=== PATIENT | male | born 1940 | race Two or more races ===

== ENCOUNTER 2021-02-19 07:45 | Inpatient (IN) | payer OTHER ==
[~2021-02-19] VITALS: Ht 172.7 cm; Wt 89.8 kg
[2021-02-19] MEDS ORDERED: LOSARTAN PO (10:39)
[2021-02-19] MEDS ORDERED: CRESTOR PO (10:39)
[2021-02-19] MEDS ORDERED: NEURIN PO (10:40)
[2021-02-19] MEDS ORDERED: PLAVIX75 MG PO (10:40)
[2021-02-19] MEDS ORDERED: ASPIRIN PO (10:40)
[2021-02-19] MEDS ORDERED: GABAPENT PO (10:41)
[2021-02-26] MEDS ORDERED: PREGABALIN75 MG (08:42)
[2021-02-26] MEDS ORDERED: PROAIR RESPICL90 MCG (08:42)
[2021-02-26] MEDS ORDERED: METOPROLOL SUCC50 MG (08:42)
[2021-02-26] MEDS ORDERED: LOSARTAN POTAS100 MG (08:42)
[2021-02-26] MEDS ORDERED: ABANEU-SL TABL1 EACH (08:42)
[2021-02-26] MEDS ORDERED: SUPER B-COMPL400 MCG (08:42)
[2021-02-26] MEDS ORDERED: GABAPENTIN600 MG (08:43)
[2021-02-26] MEDS ORDERED: ROSUVASTATIN CA10 MG (08:43)
[2021-02-26] MEDS ORDERED: WAL-TUSSIN DM118 M1 (08:43)
[2021-02-26] MEDS ORDERED: ST. JOSEPH ASPI81 M2 (08:43)
[2021-02-26] MEDS ORDERED: LUMIGAN2.5 M1 (08:43)
[2021-02-26] MEDS ORDERED: VITAMIN D325 MCG (08:46)
[2021-02-27] MEDS ORDERED: GABAPENTIN100 MG PO (14:58)
[2021-02-27] MEDS ORDERED: NORFLEX100MG PO (14:58)
[2021-02-27] MEDS ORDERED: PERCOCET 5-3251 EACH PO (14:58)
[2021-02-27] MEDS ORDERED: LOVENOX30 MG/0.3 SUBCUTANEO (14:58)
== END 2021-02-27 16:29 | DRG 470 ==
LOC: O/R 02-25 06:54 → SURH 02-25 07:45
PROVIDERS: ADMIT Orthopaedic Surgery; ATTEND Orthopaedic Surgery
PROC: 0SRC0J9 Replacement of Right Knee Joint with Synthetic Substitute, Cemented, Open Approach (ICD-10-PCS; principal; 2021-02-25 14:30)
PROC: 3E0F7SF Introduction of Other Gas into Respiratory Tract, Via Natural or Artificial Opening (ICD-10-PCS; 2021-02-26)
DX: M17.11 Unilateral primary osteoarthritis, right knee (principal); D69.59 Other secondary thrombocytopenia; T45.515A Adverse effect of anticoagulants, initial encounter; I25.10 Atherosclerotic heart disease of native coronary artery without angina pectoris; Z98.61 Coronary angioplasty status; Z79.01 Long term (current) use of anticoagulants

== ENCOUNTER 2021-05-22 09:00 | Outpatient (CLI) | payer OTHER ==
[~2021-05-22 09:00] MED LIST: ABANEU-SL TABL1 EACH; ASPIRIN PO; CRESTOR PO; GABAPENT PO; GABAPENTIN100 MG PO; GABAPENTIN600 MG; LOSARTAN PO; LOSARTAN POTAS100 MG; LOVENOX30 MG/0.3 SUBCUTANEO; LUMIGAN2.5 M1; METOPROLOL SUCC50 MG; NEURIN PO; NORFLEX100MG PO; PERCOCET 5-3251 EACH PO; PLAVIX75 MG PO; PREGABALIN75 MG; PROAIR RESPICL90 MCG; ROSUVASTATIN CA10 MG; ST. JOSEPH ASPI81 M2; SUPER B-COMPL400 MCG; VITAMIN D325 MCG; WAL-TUSSIN DM118 M1
== END 2021-05-22 09:15 | disposition home or self-care (01) ==
LOC: PPH VACUNA 09:00
PROVIDERS: ATTEND Emergency Medicine Pediatric Emergency Medicine
DX: Z23 Encounter for immunization (principal)

== ENCOUNTER 2021-06-27 18:53 | Inpatient (IN) | payer OTHER ==
[~2021-06-27] VITALS: Ht 172.7 cm; Wt 85.3 kg
== END 2021-07-16 20:27 | disposition home or self-care (01) | DRG 863 ==
LOC: ER 18:53 → MEDJ 06-28 13:53
PROVIDERS: ADMIT Internal Medicine Geriatric Medicine; ATTEND Internal Medicine Geriatric Medicine
PROC: 02HV33Z Insertion of Infusion Device into Superior Vena Cava, Percutaneous Approach (ICD-10-PCS; 2021-06-29)
PROC: B54DZZZ Ultrasonography of Bilateral Lower Extremity Veins (ICD-10-PCS; principal; 2021-06-30)
PROC: CP2C1ZZ Tomographic (Tomo) Nuclear Medicine Imaging of Right Lower Extremity using Technetium 99m (Tc-99m) (ICD-10-PCS; 2021-07-03)
PROC: BR20ZZZ Computerized Tomography (CT Scan) of Cervical Spine (ICD-10-PCS; 2021-07-07)
PROC: CW1NLZZ Planar Nuclear Medicine Imaging of Whole Body using Gallium 67 (Ga-67) (ICD-10-PCS; 2021-07-07)
DX: T81.49XA Infection following a procedure, other surgical site, initial encounter (principal); L97.818 Non-pressure chronic ulcer of other part of right lower leg with other specified severity; L03.115 Cellulitis of right lower limb; C46.7 Kaposi's sarcoma of other sites; E72.11 Homocystinuria; M54.2 Cervicalgia; L08.89 Other specified local infections of the skin and subcutaneous tissue; B95.2 Enterococcus as the cause of diseases classified elsewhere; B96.5 Pseudomonas (aeruginosa) (mallei) (pseudomallei) as the cause of diseases classified elsewhere; B96.89 Other specified bacterial agents as the cause of diseases classified elsewhere; I25.10 Atherosclerotic heart disease of native coronary artery without angina pectoris; I11.9 Hypertensive heart disease without heart failure; E78.49 Other hyperlipidemia; J84.10 Pulmonary fibrosis, unspecified; Z95.828 Presence of other vascular implants and grafts; Z20.822 Contact with and (suspected) exposure to COVID-19; Z79.01 Long term (current) use of anticoagulants

== ENCOUNTER 2022-03-02 16:24 | Inpatient (IN) | payer OTHER ==
[~2022-03-02] VITALS: Ht 152.4 cm; Wt 70.3 kg
[2022-03-02] MEDS ORDERED: TRAM1TAB98 PO (16:51)
[2022-03-03] MEDS ORDERED: PANTOPRAZOLE SO40 MG (14:51)
[2022-03-03] MEDS ORDERED: LUMIGAN2.5 M1 (14:51)
[2022-03-03] MEDS ORDERED: GABAPENTIN600 MG (14:51)
[2022-03-03] MEDS ORDERED: FAMOTIDINE20 MG (14:51)
[2022-03-03] MEDS ORDERED: TOLTERODINE TART4 MG (14:51)
[2022-03-03] MEDS ORDERED: GENTAFAIR5 ML (14:51)
[2022-03-03] MEDS ORDERED: AZELASTINE137 MCG/0. (14:51)
[2022-03-03] MEDS ORDERED: AMOX-CLAV 875-1 EAC1 (14:51)
[2022-03-03] MEDS ORDERED: PENTOXIFYLLINE400 MG (14:52)
== END 2022-04-15 07:58 | disposition expired | DRG 463 ==
LOC: ER 16:24 → SURH 18:45 → MEDJ 18:45 → ICU 04-04 18:43 → SURH 04-10 23:03
PROVIDERS: Orthopaedic Surgery; ADMIT Specialist; ATTEND Specialist
PROC: 02HV33Z Insertion of Infusion Device into Superior Vena Cava, Percutaneous Approach (ICD-10-PCS; 2022-03-03)
PROC: 0SBC0ZX Excision of Right Knee Joint, Open Approach, Diagnostic (ICD-10-PCS; 2022-03-17)
PROC: 0JBN0ZZ Excision of Right Lower Leg Subcutaneous Tissue and Fascia, Open Approach (ICD-10-PCS; principal; 2022-03-17 07:00)
PROC: 4A12X4Z Monitoring of Cardiac Electrical Activity, External Approach (ICD-10-PCS; 2022-03-30)
PROC: B24BYZZ Ultrasonography of Heart with Aorta using Other Contrast (ICD-10-PCS; 2022-03-30)
PROC: 5A09457 Assistance with Respiratory Ventilation, 24-96 Consecutive Hours, Continuous Positive Airway Pressure (ICD-10-PCS; 2022-04-03)
PROC: 5A0945A Assistance with Respiratory Ventilation, 24-96 Consecutive Hours, High Flow/Velocity Cannula (ICD-10-PCS; 2022-04-05)
PROC: 0W9930Z Drainage of Right Pleural Cavity with Drainage Device, Percutaneous Approach (ICD-10-PCS; 2022-04-06)
PROC: 0W9B30Z Drainage of Left Pleural Cavity with Drainage Device, Percutaneous Approach (ICD-10-PCS; 2022-04-08)
DX: T84.53XA Infection and inflammatory reaction due to internal right knee prosthesis, initial encounter (principal); I50.33 Acute on chronic diastolic (congestive) heart failure; J96.01 Acute respiratory failure with hypoxia; C46.0 Kaposi's sarcoma of skin; L03.115 Cellulitis of right lower limb; T81.49XA Infection following a procedure, other surgical site, initial encounter; Z16.24 Resistance to multiple antibiotics; D68.62 Lupus anticoagulant syndrome; J47.1 Bronchiectasis with (acute) exacerbation; J91.8 Pleural effusion in other conditions classified elsewhere; I46.8 Cardiac arrest due to other underlying condition; I11.0 Hypertensive heart disease with heart failure; J84.10 Pulmonary fibrosis, unspecified; D63.8 Anemia in other chronic diseases classified elsewhere; I48.0 Paroxysmal atrial fibrillation; I25.10 Atherosclerotic heart disease of native coronary artery without angina pectoris; E66.09 Other obesity due to excess calories; B96.1 Klebsiella pneumoniae [K. pneumoniae] as the cause of diseases classified elsewhere; Z53.29 Procedure and treatment not carried out because of patient's decision for other reasons